=== PATIENT | male | born 1990 | race Caucasian/White ===

== ENCOUNTER 2016-07-07 09:29 | Emergency (ER) | payer OTHER ==
[~2016-07-07] VITALS: Ht 180.3 cm; Wt 63.5 kg
--- NOTE | 2016-07-07 11:55 | ED EENT ---
History of Present Illness General Chief Complaint: Nasal Problems Stated Complaint: NOSE BLEED Nursing Triage Note: PT CO OF NOSE BLEED TWICE THIS WEEK, SUNDAY AND TODAY, STATES SILVERNITRATE USED ON NOSE AT [facility] SUNDAY Source: patient History of Present Illness Time seen by provider: 11:50 Initial Comments This 26-year-old white male presents with self-limited epistaxis that occurred this morning. Patient has had similar episodes in the past week following an acute upper respiratory infection which he blew his nose repeatedly. Patient does not have a history of epistaxis other than as a child. The patient does not have a history of a bleeding disorder. The patient was concerned that his nose might be broken as he blew it forcefully when he had his cold several days ago. Allergies and Home Medications Home Medications No Active Prescriptions or Reported Meds Review of Systems Constitutional: No chills, No fever Eyes: Denies Photophobia Nose: see HPI congestion epistaxis (patient had the small amount of bilateral epistaxis earlier today. Patient is primarily have bleeding from the right nostril this last week.) Mouth: no symptoms reported Throat: denies pain, denies neck stiffness Respiratory: No cough Cardiovascular: No chest pain Gastrointestinal: No abdominal pain, No nausea Musculoskeletal: No back pain Skin: No rash Neurological: No Symptoms Reported Hematologic/Lymphatic: No Symptoms Reported Immunological/Allergic: no symptoms reported Past Vexjsap-Wgvtwr-Nbwgzn Hx Patient Social History Alcohol Use: Occasionally Uses Recreational Drug Use: No Smoking Status: Never a Smoker Recent Foreign Travel: No Contact w/Someone Who Travel: No Recent Infectious Disease Expo: No Immunizations Up To Date Tetanus Booster (TDap): Less than 5yrs Reviewed Nursing Assessment Reviewed/Agree w Nursing PMH: Yes Physical Exam Vital Signs Vital Sign - Last 12Hours 07/07/16 11:08 Temp 98.1 Pulse 72 Resp 18 B/P 143/92 Pulse Ox 98 General Appearance: WD/WN no apparent distress Eyes: bilateral eye PERRL, bilateral eye normal inspection Nose: dried blood other (there is no septal hematoma. There is no evidence of active bleeding.) Mouth/Throat: normal mouth inspection Neck: full range of motion supple Progress/Results/Core Measures Results/Orders Vital Signs/I&O Vital Sign - Last 12Hours 07/07/16 11:08 Temp 98.1 Pulse 72 Resp 18 B/P 143/92 Pulse Ox 98 Blood Pressure Mean: 109 Progress Note : Time: 12:00 Progress Note I discussed close follow-up with ENT and the importance of avoiding further digital manipulation of his nose. I invited the patient return the emergency Department if any further problems or questions. Departure Impression Impression: Primary Impression: Epistaxis Disposition: 01 HOME, SELF-CARE Condition: Improved Departure-Patient Inst. Decision time for Depature: 12:10 Referrals: MILIND CARLOS MD NO,LOCAL PHYSICIAN (PCP) Primary Care Physician Patient Instructions: Nosebleeds (DC) Add. Discharge Instructions: Follow with Dr. Carlos. Return if having further bleeding. Avoid digital manipulation. All discharge instructions reviewed with patient and/or family. Voiced understanding. Scripts No Active Prescriptions or Reported Meds JESSICA BURDEN MD Jul 07, 2016 11:55
[2016-07-07 12:12] VITALS: BP 143/92
== END 2016-07-07 12:13 | disposition home or self-care (01) ==
LOC: ER 09:33
DX: R04.0 Epistaxis (principal)
CPT/HCPCS: 99282

== ENCOUNTER 2018-07-15 13:12 | Emergency (ER) | payer OTHER ==
[~2018-07-15] VITALS: Ht 180.3 cm; Wt 61.2 kg
--- NOTE | 2018-07-15 13:41 | ED Upper Extremity ---
General Stated Complaint: PUNCHED A WALL RIGHT HAND SWOLLEN LIGHT HEADED Source: patient Exam Limitations: no limitations History of Present Illness Date Seen by Provider: Jul 15, 2018 Time Seen by Provider: 13:39 Initial Comments To ER per private vehicle from home with reports of right hand Swelling and pain after he punched a wall with a closed fist Onset: just prior to arrival Severity: moderate Pain/Injury Location: right hand Modifying Factors: Worse With Movement Allergies and Home Medications Allergies Uncoded Allergies: "blood thinners" (Allergy, Unknown, 07/15/18) Home Medications Hydrocodone/Acetaminophen 1 Each Tablet, 1 EACH PO Q6H PRN for PAIN-MODERATE Prescribed by: CANDELARIA JOHNS on 07/15/18 1405 Patient Home Medication List Home Medication List Reviewed: Yes Review of Systems Constitutional: see HPI EENTM: see HPI Respiratory: no symptoms reported Cardiovascular: no symptoms reported Genitourinary: no symptoms reported Musculoskeletal: see HPI Skin: no symptoms reported Psychiatric/Neurological: No Symptoms Reported Past Qtqfcbs-Mhomqh-Cngecl Hx Patient Social History Recent Foreign Travel: No Contact w/Someone Who Travel: No Immunizations Up To Date Tetanus Booster (TDap): Less than 5yrs Physical Exam Vital Signs Vital Signs - First Documented 07/15/18 13:30 Temp 97.3 Pulse 64 Resp 18 B/P (MAP) 111/64 (80) Pulse Ox 97 Capillary Refill : Height, Weight, BMI Height: 5'11" Weight: 140lbs. oz. 63.023155oz; BMI Method:Stated General Appearance: WD/WN, no apparent distress HEENT: PERRL/EOMI, normal ENT inspection Neck: non-tender, full range of motion Respiratory: no respiratory distress, no accessory muscle use Gastrointestinal: normal bowel sounds, non tender Shoulder: normal inspection, non-tender Elbow/Forearm: normal inspection, non-tender Wrist: Yes normal inspection, Yes non-tender Hand: Right, deformity, limited ROM, soft tissue tenderness, swelling Neurologic/Psychiatric: alert, normal mood/affect, oriented x 3 Skin: normal color, warm/dry Has capillary refill to all of the fingertips that is brisk. There is swelling over the ulnar side of the hand dorsally with some volar depression of the fourth and fifth MCP joints. There are no punctures or lacerations in the skin. Reports present but reduced sensation distally in the fourth and fifth fingertips. Progress/Results/Core Measures Results/Orders My Orders Orders - CANDELARIA JOHNS APRN Hand, Right, 3 Views (07/15/18 13:16) Hydrocodone/Apap 5/325 Tablet (Lortab 5 (07/15/18 13:45) Medications Given in ED Current Medications Medications Dose Ordered Sig/Saurabh Route Start Time Stop Time Status Last Admin Dose Admin Acetaminophen/ Hydrocodone Bitart 1 tab ONCE ONCE PO 07/15/18 13:45 07/15/18 13:46 DC 07/15/18 13:41 1 TAB Vital Signs/I&O 07/15/18 13:30 Temp 97.3 Pulse 64 Resp 18 B/P (MAP) 111/64 (80) Pulse Ox 97 Diagnostic Imaging Diagonstic Imaging: Xray Comments NAME: LAISHA DUNCAN JR [facility] REC#: [id number] PT STATUS: REG ER : 1990 PHYSICIAN: CANDELARIA JOHNS APRN ADMIT DATE: 07/15/18/ER Draft Date of Exam:07/15/18 HAND, RIGHT, 3 VIEWS INDICATION: Pain and swelling in the right hand. Three views of the right hand were obtained. There is a comminuted fracture at the base of the fourth metacarpal. There is mild dorsal displacement of the distal fracture fragment. There appear to be some mild dorsally displaced fragments. The fifth metacarpal appears to be intact. Lateral view does suggest some mild dorsal location of the proximal aspect of the fourth and fifth metacarpals, raising question of dislocation or subluxation. The first through third metacarpals are intact. Phalanges are intact. The carpus is unremarkable. IMPRESSION: Comminuted fracture at the base of the fourth metacarpal, as described. Questionable dorsal subluxation/dislocation of the proximal fourth and fifth metacarpals. Dictated on workstation # [id number] Dict: 07/15/18 1402 Trans: 07/15/18 1408 [facility] [id number] Interpreted by: SHONNA MCCRACKEN MD Electronically signed by: Departure Communication (Admissions) I did call Dr. Dickens's office and left a voicemail for them to call either myself or the patient back for follow-up appointment. I placed him in an ulnar gutter style splint using 5 inch Ortho-Glass. Impression Primary Impression: Metacarpal bone fracture Qualified Codes: S62.314A - Displaced fracture of base of fourth metacarpal bone, right hand, initial encounter for closed fracture Disposition: 01 HOME, SELF-CARE Condition: Stable Departure-Patient Inst. Decision time for Depature: 13:57 Referrals: JESSICA DICKENS,LOCAL PHYSICIAN (PCP) Primary Care Physician LALITO ALMAGUER MD, MICHAEL P MD Patient Instructions: Elbow Fracture (DC) Add. Discharge Instructions: 1. Keep the splint on at all times until you follow up with orthopedics. I did call Dr. Dickens today but they did not answer some of the voicemail giving them to her address, listed insurance, phone number. This should be calling you with an appointment time either today or tomorrow he will need to leave the splint on at all times, so put a trash bag over the hand or keep this hand out of the shower when showering. Take pain medication as directed.. Scripts Hydrocodone/Acetaminophen ([place] 5-325 Tablet) 1 Each Tablet 1 EACH PO Q6H PRN for PAIN-MODERATE MDD 10, #30 TAB Prov: CANDELARIA JOHNS APRN 07/15/18 Work/School Note: Work Release Form Date Seen in the Emergency Department: Jul 15, 2018 Return to Work: Jul 17, 2018 Other Restrictions Listed Below: No use of right hand until cleared. Copy Copies To 1: JESSICA DICKENS PETER J APRN Jul 15, 2018 13:41
[2018-07-15] MEDS ORDERED: HYDROcodone/APAP 5 MG/325 MG (LORTAB) TAB PO ONE (13:45)
[2018-07-15] MEDS ORDERED: HYDR-4226 PO (14:05)
--- NOTE | 2018-07-15 14:08 | Diagnostic Imaging Report ---
INDICATION: Pain and swelling in the right hand. Three views of the right hand were obtained. There is a comminuted fracture at the base of the fourth metacarpal. There is mild dorsal displacement of the distal fracture fragment. There appear to be some mild dorsally displaced fragments. The fifth metacarpal appears to be intact. Lateral view does suggest some mild dorsal location of the proximal aspect of the fourth and fifth metacarpals, raising question of dislocation or subluxation. The first through third metacarpals are intact. Phalanges are intact. The carpus is unremarkable. IMPRESSION: Comminuted fracture at the base of the fourth metacarpal, as described. Questionable dorsal subluxation/dislocation of the proximal fourth and fifth metacarpals. Dictated by: Dictated on workstation # [id number]
[2018-07-15 14:25] VITALS: BP 111/64
== END 2018-07-15 14:30 | disposition home or self-care (01) ==
LOC: EDUNIT# 13:12 → ER 13:14
DX: S62.314A Displaced fracture of base of fourth metacarpal bone, right hand, initial encounter for closed fracture (principal); Z88.8 Allergy status to other drugs, medicaments and biological substances; W22.01XA Walked into wall, initial encounter
CPT/HCPCS: 73130